=== PATIENT | female | born 1995 | race Hispanic/Latino ===

== ENCOUNTER 2017-05-18 00:12 | Inpatient (IN) | payer OTHER ==
[~2017-05-18] VITALS: Ht 165.1 cm; Wt 99.0 kg
[2017-05-18] MEDS ORDERED: IRON325 M1 PO (00:59)
--- NOTE | 2017-05-18 08:38 | PR ---
[facility] [address] [facility] [place], [place] [address] Signed Progress Notes IP Datetime Report Generated by CPN: 05/18/2017 08:38 PROGRESS NOTES: [id number] Impression: Normal progression of labor Procedures: Artificial ROM Plan: Continue present management; Anticipate Vaginal Delivery VITAL SIGNS: [id number] Vital Signs: Reviewed; Within Normal Limits EXAM: [id number] Dilatation: 3.0 Effacement: 80 Station: -3 Uterine Contractions: every 2-4 minutes MEMBRANES: [id number] Membrane Status: Ruptured Amniotic Fluid Color: Meconium, Light Comments: Tolerating contractions well, would like Epidural later. Fetus A: [id number] FHR Baseline: 140 Variability: Moderate 6-25bpm Accelerations: 15X15 Presentation: Vertex Fetus B: [id number] Signing Physician: Pedrito Wooten MD CC: *Electronically Signed* 05/18/1738 PEDRITO WOOTEN MD PATIENT NAME: ERICK BRAGGDIRA PROGRESS NOTE DATE OF : 96 PHYSICIAN: PEDRITO WOOTEN MD RPT #: [id number] REPORT IS CONFIDENTIAL AND NOT TO BE RELEASED WITHOUT AUTHORIZATION
--- NOTE | 2017-05-18 14:27 | PR ---
[facility] [address] [facility] [place], [place] [address] Signed Progress Notes IP Datetime Report Generated by CPN: 05/18/2017 14:26 PROGRESS NOTES: [id number] Impression: Slow Progression of Labor Procedures: Intrauterine Pressure Catheter; Scalp Electrode Plan: Augmentation; Anticipate Vaginal Delivery VITAL SIGNS: [id number] Vital Signs: Reviewed; Within Normal Limits EXAM: [id number] Dilatation: 6.0 Effacement: 90 Station: -2 Uterine Contractions: every 2-3 minutes MEMBRANES: [id number] Membrane Status: Ruptured Amniotic Fluid Color: Meconium, Light Comments: Sslow progress, Epidural starting to wear off. Will start Pitocin augmentation after evaluation by Anesthesia Fetus A: [id number] FHR Baseline: 120 Variability: Moderate 6-25bpm Accelerations: 15X15 Presentation: Vertex Fetus B: [id number] Signing Physician: Jorgito Wooten MD CC: *Electronically Signed* 05/18/17 1426 JORGITO WOOTEN MD PATIENT NAME: ERICK BRAGG PROGRESS NOTE DATE OF : 96 PHYSICIAN: JORGITO WOOTEN MD RPT #: [id number] REPORT IS CONFIDENTIAL AND NOT TO BE RELEASED WITHOUT AUTHORIZATION
--- NOTE | 2017-05-18 21:03 | NUR ---
05/18/172102 [place] Apple PT ARRIVES TO HER ROOM IN [facility] AT 2041. PT IS HOOKED UP TO CLEAN LEADS, BP, PULSE OX, AND TEMP TAKEN. PT'S SIGNIFCANT OTHER IS AT THE BEDSIDE AT THIS TIME. IV IN THE LEFT HAND IS INTACT ND WNL.
--- NOTE | 2017-05-20 12:01 | OR ---
[facility] [address] [place], [place] [address] Signed DATE OF SERVICE: 05/18/[address] Joseph. PREOPERATIVE DIAGNOSIS: Failure to progress. POSTOPERATIVE DIAGNOSES: Failure to progress plus cephalopelvic disproportion. PROCEDURE: Primary low-transverse segment section. Delivery live male infant. SURGEON: Dr. Pedrito Joseph. ABLE BODIED TANKERMAN: Dr. Fior Downing. ANESTHESIA: Epidural and general. ESTIMATED BLOOD LOSS: 750 mL. COMPLICATIONS: None. DRAINS: Lion to bladder. FINDINGS: Live male , Apgars 8 and 8. Weight 9 pounds 6 ounces. Normal uterus, normal tubes and ovaries bilaterally. DESCRIPTION OF PROCEDURE: The patient was brought to the operating room, placed in the supine position. After adequate epidural anesthesia was obtained, procedure was started by making a small skin incision with a scalpel. At this point, the patient began feeling more pain even though we had tested the skin prior to starting, so was decided to continue general anesthesia. After general anesthesia was obtained, the subcutaneous tissue was cut with the scalpel and Bovie. The fascia nicked with scalpel and extended in transverse fashion using curved scissors. The underlying abdominal musculature was bluntly sharply from the fascia above and below the incision. The abdominal musculature was bluntly sharply along the midline. Peritoneum was grasped with hemostats, elevated, and nicked with Metzenbaum scissors and extended in a vertical fashion using Metzenbaum scissors. The Arjun self-retaining retractor was inserted into the incision and tightened in place. The lower uterine segment was identified and the area well above the bladder was nicked with a scalpel and extended in a transverse fashion using finger dissection. Electronically Signed By: PEDRITO JOSEPH MD 05/20/17 1201 PATIENT NAME: ERICK BRAGG OPERATIVE REPORT DATE OF : 96 PHYSICIAN: PEDRITO JOSEPH MD REPORT #: [id number] REPORT IS CONFIDENTIAL AND NOT TO BE RELEASED WITHOUT AUTHORIZATION [facility] [address] [place], [place] [address] Signed Moderate meconium was noted, they came from the incision. It was noted to be in the vertex CONSTANCE presentation. Infant head was delivered from the incision. The infant was noted to be quite large in arms individually delivered from the incision. Then, the abdomen and the rest of the baby finally delivered. The patient had a bowel movement on the table in addition to the meconium. The cord was doubly clamped, cut, and mouth and nose were suctioned with bulb syringe. The was passed off table in good condition to awaiting nurse. The placenta was manually removed. The uterine cavity explored a lap pad to remove any retained membranes. There was a large amount of membranes adherent inside of the uterus and this was gently taken out with a ring forceps and this was continued using a lap sponge and ring forceps until all the membranes were taken out and the uterus appeared empty. Uterus was somewhat boggy and received IV Pitocin, rectal Cytotec, and IM Methergine, which began to firm up the uterus. Angle stitch of 0-Monocryl was placed in one incision in a running locking stitch of 0 Monocryl starting at the other end used to cl o se the incision. A second running stitch of 0 Monocryl was used to imbricate the first layer. The entire pelvis was then irrigated, suctioned, examined any superficial bleeding spots cauterized with the Bovie. The Arjun retractor was removed and again the pelvis examined, noted to have good hemostasis. Sheet of A-Cell was placed over the lower uterine segment to help with healing and then the anterior wall perineum closed using a running stitch of 2-0 Vicryl suture. The abdominal musculature was reapproximated using interrupted stitches of 0 Vicryl suture. The abdominal wall incision was irrigated, suctioned, examined and any bleeding spots cauterized with the Bovie. Powdered A-Cell sprinkled on the abdominal musculature and then the fascia closed using 2 running stitches of 0 Vicryl suture meeting in the midline. Subcutaneous tissue was irrigated, suctioned, examined and any bleeding spots cauterized with the Bovie. Powdered A-Cell was then sprinkled on subcutaneous tissue, which was then closed using interrupted stitches of 3-0 Vicryl suture. Skin was reapproximated using skin clips. The patient tolerated the procedure well and went to recovery room in good condition. All sponge, needle, and instrument count correct at end of procedure. MD ABNER Stock/Modl /[id number] Electronically Signed By: PEDRITO JOSEPH MD 05/20/17 1201 PATIENT NAME: ERICK BRAGG OPERATIVE REPORT DATE OF : 96 PHYSICIAN: PEDRITO JOSEPH MD REPORT #: [id number] REPORT IS CONFIDENTIAL AND NOT TO BE RELEASED WITHOUT AUTHORIZATION
--- NOTE | 2017-05-20 12:07 | PR ---
[facility] [address] [facility] [place] [address] Signed PP Progress Notes Datetime Report Generated by CPN: 05/20/2017 12:06 SUBJECTIVE: [id number] Pain: Within normal limits Nausea/Vomiting: Denies Vital Signs: [id number] Vital Signs: Reviewed; Within Normal Limits Notable Details: PP Hgb/HCt = 9.4/28.5 EXAM: [id number] Abdomen/Uterus: Normal Lochia: Normal Extremities: Normal Incision: Normal IMPRESSION/PLAN/PROCEDURES: [id number] Impression: Normal progression Plan: Continue present management Procedures: None Progress Notes: Doing well, feeling better each day. Plan home tomorrow. Signing Physician: Jorgito Wooten MD CC: *Electronically Signed* 05/20/17 1206 JORGITO WOOTEN MD PATIENT NAME: ERICK BRAGG PROGRESS NOTE DATE OF : 96 PHYSICIAN: JORGITO WOOTEN MD RPT #: [id number] REPORT IS CONFIDENTIAL AND NOT TO BE RELEASED WITHOUT AUTHORIZATION
--- NOTE | 2017-05-21 07:41 | PR ---
[facility] [address] [facility] [place] [address] Signed PP Progress Notes Datetime Report Generated by CPN: 05/21/2017 07:41 SUBJECTIVE: [id number] Pain: Within normal limits Nausea/Vomiting: Denies Vital Signs: [id number] Vital Signs: Reviewed; Within Normal Limits Notable Details: PP Hgb/HCt = 9.4/28.5 EXAM: [id number] Abdomen/Uterus: Normal Lochia: Normal Extremities: Normal Incision: Normal IMPRESSION/PLAN/PROCEDURES: [id number] Impression: Normal progression Other Impression: PP Anemia Plan: Discharge Procedures: None Progress Notes: Doing well, without complaint. Ready to go home. Signing Physician: Jorgito Wooten MD CC: *Electronically Signed* 05/21/17 0741 JORGITO WOOTEN MD PATIENT NAME: ERICK BRAGG PROGRESS NOTE DATE OF : 96 PHYSICIAN: JORGITO WOOTEN MD RPT #: [id number] REPORT IS CONFIDENTIAL AND NOT TO BE RELEASED WITHOUT AUTHORIZATION
== END 2017-05-21 11:35 | disposition home or self-care (01) | DRG 766 ==
LOC: FBC 00:12
PROVIDERS: ADMIT General Practice
PROC: 10D00Z1 Extraction of Products of Conception, Low, Open Approach (ICD-10-PCS; principal; 2017-05-18 19:57)
DX: O64.8XX0 Obstructed labor due to other malposition and malpresentation, not applicable or unspecified (principal); O48.0 Post-term pregnancy; O66.40 Failed trial of labor, unspecified; O99.02 Anemia complicating childbirth; O61.0 Failed medical induction of labor; O77.0 Labor and delivery complicated by meconium in amniotic fluid; Z37.0 Single live birth; Z3A.41 41 weeks gestation of pregnancy
CPT/HCPCS: 01960; 01961; 36415; 85025; 85027; C1763; J0330; J0690; J1644; J2175; J2250; J2274; J2550; J2590; J2704; J2795; J3010

== ENCOUNTER 2018-12-29 16:45 | Emergency (ER) | payer OTHER ==
[~2018-12-29] VITALS: Ht 165.1 cm; Wt 77.1 kg
--- OUTSIDE RECORDS SUMMARY | ~2018-12-29 | XMS | Clinical Summary ---
Demographics + + + | Address | [address] | | | [place] [address] | + + + | Home Phone | | + + + | Preferred Language | Unknown | + + + | Marital Status | Single | + + + | Pentecostal Affiliation | Unknown | + + + | Race | Unknown | + + + | Ethnic Group | Unknown | + + + Author + + + | Author | [employer] | + + + | Organization | [email or web address] | + + + | Address | Unknown | + + + | Phone | Unavailable | + + + Support + + +---------+ + | Name | Relationship | Address | Phone | + + +---------+ + | Timothy Powers | ECON | Unknown | | + + +---------+ + Care Team Providers + +------+ + | Care Manager Relocation Name | Role | Phone | + +------+ + PP | Unavailable | + +------+ + Allergies + + + + + + | Active Allergy | Reactions | Severity | Noted | Comments | | | | | Date | | + + + + + + | Apple | Swelling | Medium | 04/19/20 | | | | | | 17 | | + + + + + + Current Medications + + +--------+---------+------+------+-------+ | Prescription | Sig. | Disp. | Refills | Star | End | Statu | | | | | | t | Date | s | | | | | | Date | | | + + +--------+---------+------+------+-------+ | ibuprofen (MOTRIN) | Take 600 mg by mouth | | | | | Activ | | 600 MG tablet | every 6 (six) hours | | | | | e | | | as needed for Pain. | | | | | | + + +--------+---------+------+------+-------+ | naproxen | Take 1 tablet by | 30 | 0 | 08/2 | 08/2 | Activ | | (NAPROSYN) 500 MG | mouth 2 (two) times | tablet | | 6/20 | 6/20 | e | | tablet | daily with meals. | | | 18 | 19 | | | | For pain | | | | | | + + +--------+---------+------+------+-------+ Active Problems Not on file Immunizations + + + + | Name | Dates Previously Given | Next Due | + + + + | HPV Quadrivalent | 04/25/2011 | | + + + + | Hepatitis A Adult | 04/25/2011 | | + + + + | Influenza, Trivalent | 11/27/2011 | | | W/Preservative | | | + + + + | Meningococcal | 11/27/2011 | | | Conjugate (MCV4P) | | | | Menactra | | | + + + + | Tdap | 03/23/2017 | | + + + + Social History + +-------+ +--------+------+ | Tobacco Use | Types | Packs/Day | Years | Date | | | | | Used | | + +-------+ +--------+------+ | Never Smoker | | | | | + +-------+ +--------+------+ + +---+---+---+ | Smokeless Tobacco: | | | | | Never Used | | | | + +---+---+---+ + + +---------+ + | Alcohol Use | Drinks/We | oz/Week | Comments | | | ek | | | + + +---------+ + | Yes | | | "rare" | + + +---------+ + + + + | Sex Assigned at | Date Recorded | | | | + + + | Not on file | | + + + Last Filed Vital Signs + + + + | Vital Sign | Reading | Time Taken | + + + + | Blood Pressure | 113/80 | 06/09/2018 5:31 AM PDT | + + + + | Pulse | 82 | 06/09/2018 5:31 AM PDT | + + + + | Temperature | 36.7 C (98.1 F) | 06/09/2018 4:40 AM PDT | + + + + | Respiratory Rate | 16 | 06/09/2018 5:31 AM PDT | + + + + | Oxygen Saturation | 99% | 06/09/2018 5:31 AM PDT | + + + + | Inhaled Oxygen | - | - | | Concentration | | | + + + + | Weight | 80.6 kg (177 lb 11.1 | 06/09/2018 4:40 AM PDT | | | oz) | | + + + + | Height | 162.6 cm (5' 4") | 06/09/2018 4:40 AM PDT | + + + + | Body Mass Index | 30.5 | 06/09/2018 4:40 AM PDT | + + + + Plan of Treatment Not on file Results Not on filefrom Last 3 Months
--- OUTSIDE RECORDS SUMMARY | ~2018-12-29 | XMS | Clinical Summary ---
Demographics + + + | Address | [address] | | | [place] [address] | + + + | Home Phone | | + + + | Preferred Language | Unknown | + + + | Marital Status | Single | + + + | Samaritan Affiliation | Unknown | + + + | Race | Unknown | + + + | Ethnic Group | Unknown | + + + Author + + + | Author | [employer] | + + + | Organization | [facility] | + + + | Address | Unknown | + + + | Phone | Unavailable | + + + Support + + +---------+ + | Name | Relationship | Address | Phone | + + +---------+ + | Timothy Powers | ECON | Unknown | | + + +---------+ + Care Team Providers + +------+ + | Care Pharm Tech Name | Role | Phone | + [...]
[~2018-12-29 16:45] MED LIST: IRON325 M1 PO; KEFLEX500 MG PO; ZOFRAN ODT4 MG PO
--- OUTSIDE RECORDS SUMMARY | 2018-12-29 16:48 | XMS ---
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 No recent Security Events currently on file CRITERIA MET - [facility] CARE PROVIDERS LG hCavez Nurse Practitioner: Current PHONE: Unknown Palak Rascon Community Health Worker 11/11/2018-Current PHONE: [phone] [facility] Current PHONE: Unknown KAVIN MUNOZ Primary Care [place] [facility] PHONE: Unknown Carole Carrero Primary Care Current [facility] PHONE: Unknown Palak Rascon / Case or Emission Technician [facility] PHONE: [phone] Guidelines Source: [facility] Guidelines Date: 12/13/2016 Care Recommendation: -CHW with Palak Alberts, had conversation with this client regarding ED visits. Client does not want [employer] assistance at this time -Client follows up with [facility] [place] [facility] -Client Primary Care Provider is Carole Carrero at [facility], [phone]. -Client can be referred back to [employer] program, if she persists into the ED, E.D. VISIT COUNT (12 MO.) 2 [facility] 1 [facility] 2 [facility] TOTAL 5 NOTE: Visits indicate total known visits. ED/UCC VISIT TRACKING (12 MO.) 12/29/2018 16:46 [facility] TYPE: Emergency COMPLAINT: - R SHOULDER PAIN 11/10/2018 15:50 [facility] [place] TYPE: Emergency DIAGNOSES: - Low back pain - R back side pain - Acute cystitis without hematuria 07/24/2018 00:12 [facility] [place] TYPE: Emergency COMPLAINT: - NAUSEA,VOMITING DIAGNOSES: - Acute pharyngitis, unspecified - Acute upper respiratory infection, unspecified - Allergy to other foods - Noninfective gastroenteritis and colitis, unspecified - Urinary tract infection, site not specified 06/09/2018 04:31 [facility] TYPE: Emergency DIAGNOSES: - left knee pain - Pain in left knee - Knee Pain 01/02/2018 21:33 [facility] [place] TYPE: Emergency COMPLAINT: - LOW BACK PAIN INPATIENT VISIT TRACKING (12 MO.) No inpatient visits to display in this time frame [email or web address]
== END 2018-12-29 19:13 | disposition home or self-care (01) ==
LOC: ED 16:45
DX: S43.401A Unspecified sprain of right shoulder joint, initial encounter (principal); Z91.018 Allergy to other foods; W10.9XXA Fall (on) (from) unspecified stairs and steps, initial encounter
CPT/HCPCS: 73030; 84703; 99283